=== PATIENT | male | born 1980 | race Caucasian/White ===

== ENCOUNTER 2017-01-20 09:53 | Emergency (ER) | payer MEDICAID ==
[~2017-01-20] VITALS: Ht 162.6 cm; Wt 67.0 kg
[~2017-01-20 09:53] MED LIST: NO MEDS
[2017-01-20 09:56] VITALS: Ht 162.6 cm; Wt 67.0 kg
[2017-01-20] MEDS ORDERED: DIPHTH/TET/ACEL PERTUSS (ADULT) 0.5 ML VIAL IM* ONE (12:30)
[2017-01-20] MEDS ORDERED: LIDOCAINE 1% (MDV) 20 ML INJ SC ONE (12:30)
[2017-01-20] MEDS ORDERED: CEPH-443 PO (13:12)
[2017-01-20] MEDS ORDERED: IBUP-1542 PO (13:12)
--- NOTE | 2017-01-20 13:12 | ERD ---
ER Documentation Chief Complaint Chief Complaint pt bib family with c/o lac to right middle finger this am HPI This is an otherwise healthy 36-year-old male who presents the emergency department following an accident while at work today. Patient states he was removing a door when a bolt came loose causing his right third digit to be crushed in between the bolt and the door. Patient sustained a laceration and reports pain only with movement. Patient denies any numbness or tingling. He currently rates his pain 0 at rest and 7 upon flexion. Last tetanus unknown. ROS All systems reviewed and are negative except as per history of present illness. Medications Home Meds Active Scripts Ibuprofen* (Motrin*) 600 Mg Tab, 600 MG PO Q6, #30 TAB Prov:SOCORRO SPEARS PA-C 01/20/17 Cephalexin* (Keflex*) 500 Mg Capsule, 500 MG PO QID for 5 Days, CAP Prov:SOCORRO SPEARS PA-C 01/20/17 Reported Medications [No Meds] No Conflict Check 01/06/13 Allergies Allergies: Coded Allergies: No Known Allergy (Unverified , 01/06/13) PMhx/Soc History of Surgery: No Anesthesia Reaction: No Hx Neurological Disorder: No Hx Respiratory Disorders: No Hx Cardiac Disorders: No Hx Psychiatric Problems: No Hx Miscellaneous Medical Probl: No Hx Alcohol Use: No Hx Substance Use: No Hx Tobacco Use: No Smoking Status: Never smoker Physical Exam Vitals Vital Signs Date Time Temp Pulse Resp B/P Pulse Ox O2 Delivery O2 Flow Rate FiO2 01/20/17 09:56 97.9 96 18 109/54 97 Physical Exam Const: Well-developed, well-nourished, no acute distress Head: Atraumatic Eyes: Normal Conjunctiva ENT: Normal External Ears, Nose and Mouth. Neck: Full range of motion..~ No meningismus. Resp: Clear to auscultation bilaterally Cardio: Regular rate and rhythm, no murmurs Skin/extremity: 5 cm laceration located along the dorsal region of the right third PIP joint and extending along the ulnar aspect of the digit proximally. There is minimal active bleeding. No major swelling. No deformity. No evidence of foreign body and patient denies foreign body sensation. Two-point discrimination intact along radial and ulnar aspect of the affected digit. Brisk capillary refill. No rotational deformity upon flexion. Patient able to fully flex and extend however reports pain on flexion. No scaphoid tenderness. No other tenderness along the hand. Back: No midline or flank tenderness Neur: Awake and alert Psych: Normal Mood and Affect Results 24 hrs Current Medications Medications (Trade) Dose Ordered Sig/Carlos A Route PRN Reason Start Time Stop Time Status Last Admin Dose Admin Diphtheria/ Tetanus/Acell Pertussis (Adacel) 0.5 ml ONCE ONCE IM* 01/20/17 12:30 01/20/17 12:31 DC 01/20/17 12:19 Lidocaine (Xylocaine 1% (Mdv) 20 ml) 20 ml ONCE ONCE SC 01/20/17 12:30 01/20/17 12:31 DC Procedures/MDM This is an otherwise healthy 36-year-old male who presents the emergency department for pain and laceration to the right third digit following a crush injury while at work. Upon arrival patient in minimal discomfort. Physical exam with evidence of a 5 cm laceration along the right third digit and pain upon flexion. Patient denied foreign body sensation. Wound was thoroughly irrigated prior to repair. Laceration Repair by me: Anesthesia: 1% lidocaine locally Location: Right third digit Tendon/Joint/Nerves: No injury Foreign body: None detected after copious irrigation and exploration Technique: Simple Interrupted Sutures Complexity: No subcutaneous sutures/mucosal repair/ edge excision Post Closure Length: 5 cm Patient's bleeding was easily controlled in the department and there is no indication of anemia. No evidence of compartment syndrome, neurologic injury, vascular injury, open joint, tendon laceration, or foreign body. Patient is appropriate for outpatient follow up. 48 hour wound check. Scar minimization instructions given. X-ray negative for acute fracture or dislocation. Patient placed in finger splint and given prophylactic antibiotics. Return in 1 week for suture removal. Based on patient's history of present illness and physical examination the decision was made to discharge. The patient was re-evaluated after ED treatment and stabilizing measures, and symptoms have improved. There is no evidence of life threatening injuries or illnesses at this time. On re-examination, patient resting in no distress, stable vital signs, reports feeling better and safe for discharge with outpatient follow up with PMD in 1-2 days. Patient given return precautions. Departure Diagnosis: Primary Impression: Laceration Additional Impression: Finger injury Encounter type: initial encounter Laterality: right Qualified Code: S69.91XA - Injury of finger of right hand, initial encounter SOCORRO SPEARS PA-C Jan 20, 2017 13:12 S69.91XA - Injury of finger of right hand, initial encounter SOCORRO SPEARS PA-C Jan 20, 2017 13:12
--- NOTE | 2017-01-20 15:51 | RADRPT ---
PROCEDURE: XR Finger. CLINICAL INDICATION: Trauma. Right third finger pain. TECHNIQUE: Three views. Frontal, lateral, and oblique. COMPARISON: None available FINDINGS: There is no fracture or dislocation. The soft tissues are normal. Articular surfaces are intact. There is no lytic or blastic lesion. There is no radiopaque foreign body. IMPRESSION: 1. Normal images of the right third finger. RPTAT: QQ .Alex Grover MD, MD Date Time Electronically viewed and signed by .Alex Grover MD, MD on 01/20/2017 14:50 .R/
== END 2017-01-20 14:02 | disposition home or self-care (01) ==
LOC: FTE 09:53
DX: S61.212A Laceration without foreign body of right middle finger without damage to nail, initial encounter (principal); W23.0XXA Caught, crushed, jammed, or pinched between moving objects, initial encounter; Y92.89 Other specified places as the place of occurrence of the external cause; Z23 Encounter for immunization
CPT/HCPCS: 12002; 73140; 90471; 90715; Z7502; Z7610

== ENCOUNTER 2017-01-28 17:42 | Emergency (ER) | payer MEDICAID ==
[~2017-01-28] VITALS: Ht 157.5 cm; Wt 66.5 kg
[~2017-01-28 17:42] MED LIST changes: +CEPH-443 PO; +IBUP-1542 PO
[2017-01-28 17:57] VITALS: Ht 157.5 cm; Wt 66.5 kg
--- NOTE | 2017-01-28 18:20 | ERD ---
ER Documentation Chief Complaint Chief Complaint suture removal right 3rd finger HPI Patient is a 36-year-old male with no medical problems who presents with suture removal. The patient said that he has had 4 stitches to his right third finger for the past 8 days. He had 4 stitches placed here. The patient has been on antibiotics for the past few days. He says that he has no complaints. He just needs to have his sutures taken out. He does not currently have a primary doctor. He has full range of motion. ROS All systems reviewed and are negative except as per history of present illness. Medications Home Meds Active Scripts Ibuprofen* (Motrin*) 600 Mg Tab, 600 MG PO Q6, #30 TAB Prov:SOCORRO SPEARS PA-C 01/20/17 Cephalexin* (Keflex*) 500 Mg Capsule, 500 MG PO QID for 5 Days, CAP Prov:SOCORRO SPEARS PA-C 01/20/17 Reported Medications [No Meds] No Conflict Check 01/06/13 Allergies Allergies: Coded Allergies: No Known Allergy (Unverified , 01/06/13) PMhx/Soc Medical and Surgical Hx: pt denies Medical Hx History of Surgery: No Anesthesia Reaction: No Hx Neurological Disorder: No Hx Respiratory Disorders: No Hx Cardiac Disorders: No Hx Psychiatric Problems: No Hx Miscellaneous Medical Probl: No Hx Alcohol Use: No Hx Substance Use: No Hx Tobacco Use: No FmHx Family History: No diabetes Physical Exam Vitals Vital Signs Date Time Temp Pulse Resp B/P Pulse Ox O2 Delivery O2 Flow Rate FiO2 01/28/17 17:57 98.4 88 18 125/68 99 Physical Exam Const: No acute distress Head: Atraumatic Eyes: Normal Conjunctiva ENT: Normal External Ears, Nose and Mouth. Neck: Full range of motion..~ No meningismus. Resp: Clear to auscultation bilaterally Cardio: Regular rate and rhythm, no murmurs Abd: Soft, non tender, non distended. Normal bowel sounds Skin: Incision is clean, dry, and intact on the right third finger without signs of infection Back: No midline or flank tenderness Ext: No cyanosis, or edema Neur: Awake and alert Psych: Normal Mood and Affect Procedures/MDM Smoking Cessation Therapy: Pt. was lectured for greater than 3 minutes on the health risks of continued smoking and the benefits of cessation. Suture Removal by me: Sutures removed with tweezers and scissors without incident. Wound shows no evidence of infection, foreign body, neurologic injury, vascular injury, open joint or tendon laceration. Patient to follow up PRN. Departure Diagnosis: Primary Impression: Encounter for removal of sutures Condition: Fair Patient Instructions: Suture Removal, No Complication [facility]: [facility] Usted se diaz hecho un examen mdico de control que le indica que no est en josé condicin que requiera tratamiento urgente en el Departamento de Emergencia. Un estudio ms profundo y el tratamiento de lucas condicin pueden esperar sin ningn riesgo hasta que usted sea atendida/o en el consultorio de lucas mdico o josé cl abigail. Es responsabilidad suya arreglar josé nano para el seguimiento del rosina. MANEJO DE CONDICIONES NO URGENTES EN EL FUTURO 1) Si usted tiene un mdico de atencin primaria: Usted debera llamar a lucas mdico de atencin primaria antes de venir al departamento de emergencia. Despus de las horas de consultorio, lucas doctor o lucas asociado/a est disponible por telfono. El mdico o enfermero de rafia en el servicio telefnico puede asesorarle por tylor medio para atender el problema, o rosina contrario se puede programar josé nano. 2) Si usted no tiene un mdico de atencin primaria: Llame al mdico o clnica de referencia que aparece abajo lorna las horas de consultorio para hacer josé nano para que le vean. CLINICAS: [facility] [phone] [address] [facility] 461 [phone] [address] [facility] [phone] [address] [facility] 876 [phone] [facility] 351 [phone] [address] [facility] [phone] [address] Additional Instructions: Llame al doctor nombrado abajo (Referral Sources) MAANA y severo josé NANO PARA DENTRO DE JOSÉ SEMANA. Dgale a la secretaria que nosotros le instruimos hacer esta nano.Avise o llame si lucas condicin se empeora antes de la nano. MALINI MADRID MD Jan 28, 2017 18:20
== END 2017-01-28 18:30 | disposition home or self-care (01) ==
LOC: FTE 17:42
DX: Z48.02 Encounter for removal of sutures (principal); F17.210 Nicotine dependence, cigarettes, uncomplicated
CPT/HCPCS: 99281